=== PATIENT | female | born 1965 | race African-American/Black ===

== ENCOUNTER → 2017-02-07 | Outpatient (CLI) | payer BC ==
--- NOTE | 2017-02-07 12:59 | MAMMOGRAPHY REPORT ---
BILATERAL DIGITAL SCREENING MAMMOGRAM TOMOSYNTHESIS WITH CAD: 02/07/2017 CLINICAL HISTORY: Routine screening. Patient has no complaints. TECHNIQUE: Breast tomosynthesis in addition to standard 2D mammography was performed. Current study was also evaluated with a Computer Aided Detection (CAD) system. COMPARISON: Comparison is made to exams dated: 02/04/2016 mammogram, 02/02/2015 mammogram, 12/23/2013 m ammogram, 12/12/2012 mammogram, 05/25/2011 mammogram, and 05/20/2010 mammogram - [facility] nt. BREAST COMPOSITION: There are scattered areas of fibroglandular density in both breasts. FINDINGS: No suspicious masses, calcifications, or areas of architectural distortion are noted in e ither breast. There has been no significant interval change compared to prior exams. Small triangul ar asymmetry posterior to the right nipple middle depth on the MLO view is stable compared to prior exams including the 2012 exam. IMPRESSION: ACR BI-RADS CATEGORY 2: BENIGN There is no mammographic evidence of malignancy. A 1 year screening mammogram is recommended. The p atient will receive written notification of the results. Approximately 10% of breast cancers are not detected with mammography. A negative mammographic repor t should not delay biopsy if a clinically suggestive mass is present. Christina Pereira M.D. /:02/07/2017 11:42:51 Material Man: Irena HARPER(Whit)(Hedy), [facility] letter sent: Normal 1/2 BI-RADS Code: ACR BI-RADS Category 2: Benign
== END | disposition home or self-care (01) ==
LOC: C.MAMM 11:13
PROVIDERS: ATTEND Family Medicine
DX: Z12.31 Encounter for screening mammogram for malignant neoplasm of breast (principal)

== ENCOUNTER 2022-10-03 03:05 | Observation (INO) ==
[2022-10-03] MEDS ORDERED: methylPREDNISolone 125 MG/2 ML VIAL IV STA (03:18)
[2022-10-03] MEDS ORDERED: diphenhydrAMINE 50 MG/ML VIAL IV STA (03:18)
[2022-10-03] MEDS ORDERED: FAMOTIDINE 20MG IV PUSH 20 MG/5 ML SYR IV STA (03:18)
[2022-10-03] MEDS ORDERED: TRANEXAMIC ACID / 0.7% NACL 1,000 MG/100 ML BAG IV STA (03:20)
--- NOTE | 2022-10-03 03:20 | Emergency Department Note ---
History of Present Illness General Chief complaint: Allergic Reaction Stated complaint: TONGUE SWOLLEN Time Seen by Provider: 10/03/22 03:10 History of Present Illness Maximum Pain Intensity: 3 This 57-year-old female presents to the ER with spouse complaining of tongue swelling for the past 4 hours steadily getting worse. Patient denies chest pain, dyspnea, fevers, rash, throat tightness, abdominal pain, new foods soaps or detergents. Patient is on lisinopril for several years. No other concerns per patient. No history of similar episodes in the past. Past Med/Surg History Medical History High blood pressure Social History Smoking Status: Current every day smoker Tobacco Type: Cigarettes Feels Safe at Home: Yes Review of Systems A total of 10 systems reviewed and were otherwise negative Physical Exam Vital Signs Vital Signs - 24 hr 10/03/22 03:07 10/03/22 03:43 10/03/22 03:44 Temperature 36.2 C L Temperature Source Temporal Artery Scan Pulse Rate 79 Respiratory Rate 18 Respiratory Effort / Characteristics Non-Labored Spontaneous Respiratory Depth Normal Blood Pressure 157/86 H Blood Pressure Mean 109 Blood Pressure Position Sitting Pulse Oximetry 98 97 Oxygen Delivery Method Room Air Room Air Room Air Oxygen Flow Rate Sepsis Recent Fever Within 48 Hours No Sepsis New/Unexplained Change in Mental Status N/A Sepsis Action Taken by Nursing No Action Required 10/03/22 03:18 10/03/22 03:06 Temperature Temperature Source Pulse Rate Respiratory Rate Respiratory Effort / Characteristics Respiratory Depth Blood Pressure Blood Pressure Mean Blood Pressure Position Pulse Oximetry 98 98 Oxygen Delivery Method Room Air Room Air Oxygen Flow Rate 0 Sepsis Recent Fever Within 48 Hours Sepsis New/Unexplained Change in Mental Status Sepsis Action Taken by Nursing VITALS: Vitals are noted on the nurse's note and reviewed by myself. Vital signs stable. GENERAL: Pleasant female with a muffled voice, in no acute distress, nondiaphoretic, well-developed well-nourished. SKIN: The skin was without rashes, erythema, edema, or bruising. There is no tenting of the skin. Capillary reflex less than 2 seconds. HEAD: Normocephalic atraumatic. EARS: External auditory canals clear, tympanic membranes pearly alvarez without erythema or effusion bilaterally. EYES: Pupils equal round and reactive to light and accommodation. Conjunctivae without injection, sclerae without icterus. Extraocular movements intact. NOSE: Patent, turbinates without inflammation or discharge. No sinus tenderness. MOUTH: Mucous membranes moist. Pharynx without erythema or exudate. Uvula mi dline. Airway patent. Tongue extremely edematous unable to visualize the back of the throat NECK: Supple without nuchal rigidity. No lymphadenopathy. No thyromegaly. Cervical spine is nontender. No JVD. HEART: Regular rate and rhythm LUNGS: Clear to auscultation bilaterally without wheezes, rales or rhonchi. No retractions or accessory muscle use. ABDOMEN: Positive bowel sounds x 4. Normal tympanic percussion. Soft, nontender, without masses or organomegaly. Curry sign negative. No guarding or rebound tenderness. No CVA tenderness MUSCULOSKELETAL: No muscle atrophy, erythema, or edema noted. NEURO: Patient was alert and oriented to person place and time. Normal sensation to light and sharp touch. No focal neurological deficits. Course Administered Medications Discontinued Medications Diphenhydramine HCl (Diphenhydramine 50 Mg/Ml Vial) 50 mg IV NOW STA Stop: 10/03/22 03:19 Last Admin: 10/03/22 03:25 Dose: 50 mg Documented By: JOSÉ MIGUEL Famotidine (Pepcid 20mg Iv Push) 20 mg in 5 mls @ 2.5 mls/min IV NOW STA Stop: 10/03/22 03:19 Last Admin: 10/03/22 03:25 Dose: 2.5 mls/min Documented By: JOSÉ MIGUEL Tranexamic Acid (Tranexamic Acid / 0.7% Nacl) 1,000 mg in 100 mls @ 600 mls/hr IV NOW STA Stop: 10/03/22 03:29 Last Infusion: 10/03/22 03:40 Dose: 0 mls/hr Documented By: Admin: 10/03/22 03:25 Dose: 600 mls/hr Documented By: JOSÉ MIGUEL Methylprednisolone (Methylprednisolone 125 Mg/2 Ml Vial) 125 mg IV NOW STA Stop: 10/03/22 03:19 Last Admin: 10/03/22 03:25 Dose: 125 mg Documented By: JOSÉ MIGUEL Medical Decision Making Medical Records Attestation: I reviewed the patient's medical records. Home Medications Current Medication List: was personally reviewed by me Laboratory Data Attestation: I reviewed the patient's lab results. 10/03/22 03:30 10/03/22 03:30 Lab Results 10/03/22 10/03/22 10/03/22 Range/Units 03:30 03:30 03:30 WBC 7.70 (4.8-10.8) K/ul RBC 4.75 (3.93-5.22) M/uL Hgb 13.5 (12.0-16.0) g/dl Hct 39.8 (34.1-44.9) % MCV 83.8 (80.0-100.0) fL MCH 28.4 (25.0-34.0) pg MCHC 33.9 (32.0-36.0) g/dL RDW Std Deviation 46.6 H (36.4-46.3) fL RDW Coeff of Marry 15.2 H (11.5-14.5) % Plt Count 257 (130-400) K/uL MPV 10.9 (9.4-12.3) fL Immature Gran % (Auto) 0.3 % Neut % (Auto) 47.2 % Lymph % (Auto) 39.0 % [place] % (Auto) 8.4 % Eos % (Auto) 4.5 % Baso % (Auto) 0.6 % Neut # (Auto) 3.63 (1.4-6.5) K/uL Lymph # (Auto) 3.00 (1.2-3.4) K/uL [place] # (Auto) 0.65 (0.24-0.82) K/uL Eos # (Auto) 0.35 (0-0.50) K/uL Baso # (Auto) 0.05 (0-0.2) K/uL Immature Gran # (Auto) 0.02 (0.00-0.02) K/uL Sodium 139 (136-145) mmol/L Potassium 3.6 (3.5-5.1) mmol/L Chloride 103 (98-107) mmol/L Carbon Dioxide 30 (21-32) mmol/L Anion Gap 6 (3-11) BUN 13 (6-23) mg/dl Creatinine 0.85 (0.6-1.2) mg/dl Est Cr Clr Drug Dosing 80.5 ml/min Est GFR ( Amer) 88.2 ml/min Est GFR (Non-Af Amer) 76.1 ml/min BUN/Creatinine Ratio 15.3 (10-20) Glucose 95 (70-99(Fasting)) mg/dl Calcium 9.3 (8.5-10.1) mg/dl Total Bilirubin 0.4 (0.2-1.0) mg/dl AST 13 (13-39) U/L ALT 10 (7-52) U/L Alkaline Phosphatase 65 (34-104) U/L Total Protein 7.6 (6.0-8.3) gm/dl Albumin 4.5 (3.4-5.0) gm/dl Globulin 3.1 (2.5-4.0) gm/dl Albumin/Globulin Ratio 1.5 (0.9-2) SARS-CoV-2, RNA, NAAT NEGATIVE (NEGATIVE) MDM Narrative Prior records/ancillary studies reviewed. Triage Nursing notes reviewed. Additional history obtained from family. The patient's history was concerning for possible allergic reaction. Differential diagnosis: Etiologies such as allergic reaction, anaphylaxis, urticaria, Phillips-Iftikhar syndrome, toxic epidermal necrolysis, erythema multiforme, cellulitis, as well as others were entertained. Physical examination: As above. ER treatment provided: Continuous cardiac monitoring An order was placed for continuous cardiac monitoring. The monitor shows a rate of 60-100 with a sinus rhythm per my interpretation. Benadryl 50 mg IV Pepcid 20 mg IV TXA 1 g IV Solu-medrol 125mg IV Diagnostic interpretation by me: Labs: No worrisome leukocytosis, stable H&H. Negative COVID Stable creatinine Exam and history seem consistent with DEREK inhibitor angioedema. Patient's tongue was quite swollen. No real change with being medicated as above. Case discussed with hospitalist and patient will be admitted. Patient is agreeable treatment plan of admission. By the evaluation outlined above emergent etiolo gies such as recurring anaphylaxis, anaphylatic shock, Phillips-Iftikhar syndrome, toxic epidermal necrolysis, erythema multiforme, infectious etiologies, as well as others were deemed relatively unlikely. The pt informed about the findings as listed above. All questions were answered and pleased with the treatment. The chart was completed utilizing [employer] voice recognition software. Grammatical errors, random word insertions, pronoun errors, and incomplete sentences are an occassional consequence of this system due to software limitations, ambient noise, and hardware issues. Any formal questions or concerns about the content, text, or information contained within the body of this dictation should be directly addressed to the physician under water assistant for clarification. Impression & Plan Angioedema Discharge Plan Visit Data Chief Complaint: Allergic Reaction Stated Complaint: TONGUE SWOLLEN ED Provider: Jaiden Gregg ED Midlevel Provider: Adry Buitrago Discharge Problem: Angioedema Patient Disposition: Admitted As Inpatient Condition: Good Forms Stand Alone Forms: My [facility] Referrals Referrals: Rehana Metz CRNP [Primary Care Provider] - : Angioedema Qualifiers: Encounter type: initial encounter Qualified Code(s): T78.3XXA - Angioneurotic e dianna, initial encounter
[2022-10-03 03:47] LABS: Basophils # (auto) 0.05 K/uL (0-0.2); Basophils % (auto) 0.6 %; Eosinophils # (auto) 0.35 K/uL (0-0.50); Eosinophils % (auto) 4.5 %; Hematocrit (blood only) 39.8 % (34.1-44.9); Hemoglobin 13.5 g/dl (12.0-16.0); Immature Granulocytes # (auto) 0.02 K/uL (0.00-0.02); Immature Granulocytes % (auto) 0.3 %; Mean Corpuscular Hemoglobin 28.4 pg (25.0-34.0); Mean Corpuscular Hgb Conc 33.9 g/dL (32.0-36.0); Mean Corpuscular Volume 83.8 fL (80.0-100.0); Mean Platelet Volume 10.9 fL (9.4-12.3); Monocytes # (auto) 0.65 K/uL (0.24-0.82); Monocytes % (auto) 8.4 %; Neutrophils # (auto) 3.63 K/uL (1.4-6.5); Neutrophils % (auto) 47.2 %; Platelet Count 257 K/uL (130-400); RDW Coefficient of Variation 15.2 % (11.5-14.5); RDW Standard Deviation 46.6 fL (36.4-46.3); Red Blood Count 4.75 M/uL (3.93-5.22)
[2022-10-03 04:18] LABS: Albumin Globulin Ratio 1.5 (0.9-2); Albumin Level 4.5 gm/dl (3.4-5.0); Bilirubin,Total 0.4 mg/dl (0.2-1.0); Calcium 9.3 mg/dl (8.5-10.1); Globulin 3.1 gm/dl (2.5-4.0); Potassium 3.6 mmol/L (3.5-5.1); Total Protein 7.6 gm/dl (6.0-8.3)
[2022-10-03 04:54] LABS: BUN Creatinine Ratio 15.3 (10-20); Creatinine Clr Calc Pharmacy 80.5 ml/min; Est GFR (African American) 88.2 ml/min; Est GFR (Non-African American) 76.1 ml/min
--- NOTE | 2022-10-03 05:42 | History & Physical Report ---
Date of Service October 03, 2022 Assessment & Plan (1) Hypertension: (2) Depression: (3) Angioedema: Plan Angioedema- Swollen and edema tongue NPO Methylprednisolone 60 mg IV every 6 hours Famotidine 20 mg IV every 12 hours Benadryl 25 mg IV every 4 hours x2, then every 4 hours as needed NSS + KCl 20 mEq at 100 mils per hour Hold DEREK inhibitors Depression- Hold sertraline while n.p.o. Hypertension- Hydralazine 10 mg IV every 4 hours as needed for systolic blood pressure greater than 160 History of Present Illness Chief Complaint: The patient presents to the emergency department with spouse complaining of the acute development and worsening of tongue swelling for the past 4 hours prior to arrival Primary Care Provider: Rehana Metz The patient is a 57-year-old female with a past medical history of hypertension and depression, who presents to the emergency department with symptoms as noted above. She immediately received from the ED the following: Methylprednisolone 125 mg IV, famotidine 20 mg IV, tranexamic acid, and Benadryl 50 mg IV, from which she began to notice decrease in the amount of swelling. She denies any associated chest pain, shortness of breath, lightheadedness or dizziness or any other new symptoms. She does have tube medications that she takes: Lisinopril and sertraline. Past Med/Surg History Medical History High blood pressure Social History Smoking Status: Current every day smoker Tobacco Type: Cigarettes Feels Safe at Home: Yes Review of Systems Review of Systems: The patient denies chest pain, palpitations, shortness of breath, dyspnea on exertion, cough, lower extremity swelling, fevers, chills, sweats, weight change, fatigue, nausea, vomiting, diarrhea , co nstipation, abdominal pain, pelvic pain, blood in urine or stool, dysuria, urinary frequency or urgency, lightheadedness, dizziness, headache, memory loss, loss of consciousness, rash, abnormal bruising or bleeding, imbalance, focal or generalized weakness, numbness or tingling in arms or legs, generalized arthralgias or myalgias, back or neck pain, or night sweats. The review of systems is otherwise negative other than for that already noted above, and at least 10 systems have been reviewed. Physical Exam Physical Exam: The patient is awake, alert and oriented 3, well developed and well nourished, normocephalic and atraumatic, lying in bed and in no acute distress. HEENT--PERRL, EOM'sI. Limited oropharyngeal examination due to very enlarged tongue Neck--supple. No JVD. No bruits. Thyroid normal, trachea midline, no adenopathy. Heart--normal S1 and S2. No murmurs, rubs or gallops. Lungs--clear bilaterally, no respiratory distress, no accessory muscle use. Abdomen--normal bowel sounds and soft. Nontender. Nondistended, no hernias or masses, no organomegaly. Extremities--no cyanosis or clubbing. No edema. There are good distal pulses b/l. Dermatologic--normal skin turgor, normal color, no abnormal lymph nodes, no rash. Neurologic--cranial nerves II through XII grossly intact. Rheumatologic--normal range of motion. Psychiatric--normal affect. Results & Data Results & Data ([facility]) Vital Signs (Past 12 Hours) Vital Signs Temp Pulse Pulse Resp BP BP Pulse Ox 10/03/22 05:06 58 L 16 147/98 H 96 10/03/22 03:06 98 10/03/22 03:18 98 10/03/22 03:44 97 10/03/22 03:43 10/03/22 03:07 36.2 C L 79 18 157/86 H 98 O2 Del Method O2 Flow Rate 10/03/22 05:06 Room Air 10/03/22 03:06 Room Air 0 10/03/22 03:18 Room Air 10/03/22 03:44 Room Air 10/03/22 03:43 Room Air 10/03/22 03:07 Room Air Laboratory Results Laboratory Results WBC 7.70 K/ul (4.8-10.8) 10/03/22 03:30 RBC 4.75 M/uL (3.93-5.22) 10/03/22 03:30 Hgb 13.5 g/dl (12.0-16.0) 10/03/22 03:30 Hct 39.8 % (34.1-44.9) 10/03/22 03:30 MCV 83.8 fL (80.0-100.0) 10/03/22 03:30 MCH 28.4 pg (25.0-34.0) 10/03/22 03:30 MCHC 33.9 g/dL (32.0-36.0) 10/03/22 03:30 RDW Std Deviation 46.6 fL (36.4-46.3) H 10/03/22 03:30 RDW Coeff of Marry 15.2 % (11.5-14.5) H 10/03/22 03:30 Plt Count 257 K/uL (130-400) 10/03/22 03:30 MPV 10.9 fL (9.4-12.3) 10/03/22 03:30 Immature Gran % (Auto) 0.3 % 10/03/22 03:30 Neut % (Auto) 47.2 % 10/03/22 03:30 Lymph % (Auto) 39.0 % 10/03/22 03:30 [place] % (Auto) 8.4 % 10/03/22 03:30 Eos % (Auto) 4.5 % 10/03/22 03:30 Baso % (Auto) 0.6 % 10/03/22 03:30 Neut # (Auto) 3.63 K/uL (1.4-6.5) 10/03/22 03:30 Lymph # (Auto) 3.00 K/uL (1.2-3.4) 10/03/22 03:30 [place] # (Auto) 0.65 K/uL (0.24-0.82) 10/03/22 03:30 Eos # (Auto) 0.35 K/uL (0-0.50) 10/03/22 03:30 Baso # (Auto) 0.05 K/uL (0-0.2) 10/03/22 03:30 Immature Gran # (Auto) 0.02 K/uL (0.00-0.02) 10/03/22 03:30 Sodium 139 mmol/L (136-145) 10/03/22 03:30 Potassium 3.6 mmol/L (3.5-5.1) 10/03/22 03:30 Chloride 103 mmol/L (98-107) 10/03/22 03:30 Carbon Dioxide 30 mmol/L (21-32) 10/03/22 03:30 Anion Gap 6 (3-11) 10/03/22 03:30 BUN 13 mg/dl (6-23) 10/03/22 03:30 Creatinine 0.85 mg/dl (0.6-1.2) 10/03/22 03:30 Est Cr Clr Drug Dosing 80.5 ml/min 10/03/22 03:30 Est GFR ( Amer) 88.2 ml/min 10/03/22 03:30 Est GFR (Non-Af Amer) 76.1 ml/min 10/03/22 03:30 BUN/Creatinine Ratio 15.3 (10-20) 10/03/22 03:30 Glucose 95 mg/dl (70-99(Fasting)) 10/03/22 03:30 Calcium 9.3 mg/dl (8.5-10.1) 10/03/22 03:30 Total Bilirubin 0.4 mg/dl (0.2-1.0) 10/03/22 03:30 AST 13 U/L (13-39) 10/03/22 03:30 ALT 10 U/L (7-52) 10/03/22 03:30 Alkaline Phosphatase 65 U/L (34-104) 10/03/22 03:30 Total Protein 7.6 gm/dl (6.0-8.3) 10/03/22 03:30 Albumin 4.5 gm/dl (3.4-5.0) 10/03/22 03:30 Globulin 3.1 gm/dl (2.5-4.0) 10/03/22 03:30 Albumin/Globulin Ratio 1.5 (0.9-2) 10/03/22 03:30 SARS-CoV-2, RNA, NAAT NEGATIVE (NEGATIVE) 10/03/22 03:30 Code Status & VTE Plan Code Status Full code VTE Prophylaxis Plan VTE Prophylaxis will be ordered: Yes PG Care Time/CCT Total # of Minutes Spent Total Time Spent with Patient: Total time spent is greater than 50% in coordination of care (as documented) at patient's floor/unit and/or counseling patient: Coding Level of Care Code 73258 INT INP/OBS CARE 3/75MIN Diagnoses Hypertension I10 Depression F32.A Angioedema T78.3XXA Encounter type: initial encounter (1) Angioedema Encounter type: initial encounter Qualified Code(s): T78.3XXA - Angioneurotic edema, initial encounter
[2022-10-03] MEDS ORDERED: ONDANSETRON INJ 2 MG/ML 2 ML VIAL IV PRN (06:03)
[2022-10-03] MEDS ORDERED: hydrALAZINE HCL 20 MG/ML VIAL IV PRN (06:26)
[2022-10-03] MEDS ORDERED: Patient's ALLERGY Info needs ENTERED SCH (06:45)
[2022-10-03] MEDS: diphenhydrAMINE 50 MG/ML VIAL IV SCH ×2 (07:43→12:14)
[2022-10-03] MEDS: methylPREDNISolone 60 MG in SYRINGE 0 ML IV SCH ×2 (10:47→15:48)
[2022-10-03] MEDS: NSS + 20MEQ KCL 20 MEQ/1,000 ML BAG IV SCH ×3 (10:47→21:41)
[2022-10-03] MEDS: FAMOTIDINE 20 MG in SYRINGE 3 ML IV SCH ×2 (12:14→20:32)
[2022-10-03] MEDS ORDERED: diphenhydrAMINE 50 MG/ML VIAL IV PRN (15:30)
[2022-10-04 06:36] LABS: Basophils # (auto) 0.03 K/uL (0-0.2); Basophils % (auto) 0.2 %; Hematocrit (blood only) 36.3 % (34.1-44.9); Hemoglobin 12.3 g/dl (12.0-16.0); Immature Granulocytes # (auto) 0.08 K/uL (0.00-0.02); Immature Granulocytes % (auto) 0.5 %; Lymphocytes # (auto) 2.63 K/uL (1.2-3.4); Lymphocytes % (auto) 17.6 %; Mean Corpuscular Hemoglobin 28.3 pg (25.0-34.0); Mean Corpuscular Hgb Conc 33.9 g/dL (32.0-36.0); Mean Corpuscular Volume 83.4 fL (80.0-100.0); Mean Platelet Volume 11.2 fL (9.4-12.3); Monocytes # (auto) 1.11 K/uL (0.24-0.82); Monocytes % (auto) 7.4 %; Neutrophils # (auto) 11.07 K/uL (1.4-6.5); Neutrophils % (auto) 74.3 %; Platelet Count 235 K/uL (130-400); RDW Coefficient of Variation 15.3 % (11.5-14.5); Red Blood Count 4.35 M/uL (3.93-5.22); White Blood Count 14.92 K/ul (4.8-10.8)
[2022-10-04 06:51] LABS: Albumin Level 3.8 gm/dl (3.4-5.0); Calcium 8.6 mg/dl (8.5-10.1); Magnesium 2.1 mg/dl (1.7-2.4); Potassium 3.9 mmol/L (3.5-5.1)
[2022-10-04 06:57] LABS: BUN Creatinine Ratio 18.6 (10-20); Est GFR (African American) 86.9 ml/min; Phosphorus 3.3 mg/dl (2.5-4.9)
[2022-10-04] MEDS: NSS + 20MEQ KCL 20 MEQ/1,000 ML BAG IV SCH (08:35)
[2022-10-04] MEDS: FAMOTIDINE 20 MG in SYRINGE 3 ML IV SCH (08:39)
[2022-10-04] MEDS ORDERED: methylPREDNISolone 60 MG in SYRINGE 0 ML IV SCH (09:00)
--- NOTE | 2022-10-12 17:42 | Discharge Summary ---
Date of Service October 04, 2022 Admission HPI Per Admitting Provider The patient is a 57-year-old female with a past medical history of hypertension and depression, who presents to the emergency department with symptoms as noted above. She immediately received from the ED the following: Methylprednisolone 125 mg IV, famotidine 20 mg IV, tranexamic acid, and Benadryl 50 mg IV, from which she began to notice decrease in the amount of swelling. She denies any associated chest pain, shortness of breath, lightheadedness or dizziness or any other new symptoms. She does have tube medications that she takes: Lisinopril and sertraline. Principal Diagnosis Angioedema (possibly/likely) an adverse effeect of Lisinopril Discharge Exam The patient is awake, alert and oriented 3, well developed and well nourished, normocephalic and atraumatic, lying in bed and in no acute distress. HEENT--PERRL, EOM'sI. Lips and tongue no longer showing signs of any swelling. Neck--supple. No JVD. No bruits. Thyroid normal, trachea midline, no adenopathy. Heart--normal S1 and S2. No murmurs, rubs or gallops. Lungs--clear bilaterally, no respiratory distress, no accessory muscle use. Abdomen--normal bowel sounds and soft. Nontender. Nondistended, no hernias or masses, no organomegaly. Extremities--no cyanosis or clubbing. No edema. There are good distal pulses b/l. Dermatologic--normal skin turgor, normal color, no abnormal lymph nodes, no rash. Neurologic--cranial nerves II through XII grossly intact. Rheumatologic--normal range of motion. Psychiatric--normal affect. Discharge Data Allergies Allergy/AdvReac Type Severity Reaction Status Date / Time No Known Allergies Allergy Unverified 10/03/22 06:44 Consultations 10/03/22 03:31 ED Decision to Admit Stat Hospital Course (1) Hypertension: (2) Depression: (3) Angioedema: Plan Angioedema- Angioedema (possibly/likely) an adverse effeect of Lisinopril will hold lisinopril from here on out. Admitted with Swollen and edema tongue NPO Methylprednisolone 60 mg IV every 6 hours Famotidine 20 mg IV every 12 hours Benadryl 25 mg IV every 4 hours x2, then every 4 hours as needed Patient improved on 10/04, patient was able to be discharged on streoid taper as she tolerated her diet. Depression- Hold sertraline while n.p.o. resumed at discharge. Hypertension- Hydralazine 10 mg IV every 4 hours as needed for systolic blood pressure greater than 160 Total Time Total Time Spent Total Time Spent (In Minutes): 32 Discharge Plan Discharge Items Patient Disposition: Home - Self-Care Reason For Visit: ACEI ANGIOEDEMA Discharge Diagnosis: gray inhibitor angioedema Condition on Discharge: Good Activity: Resume your previous activity Non-emergency contact: Primary Care Provider Call non-emergency contact if: you have any medication questions Follow-up/Referrals: Mikaela Laughlin PA-C [Physician Manufacturing Technology Analyst] - 10/09/22 2:30 pm (Dr. Ritter is booked until 12/07. Appointment was made with GUME Chadwick, who is with Dr. Ritter. ) Rehana Metz CRNP [Primary Care Provider] - 10/11/22 2:30 pm Diet: Regular Addtl Attending Provider Instructions: Recommend close followup with PCP Recommend stopping lisinopril Recommend a short steroid taper. Recommend followup with Dr. Ritter , this will be scheduled for you. Pending Studies at Discharge: No Stand-Alone Forms: My [facility] [employer], Smoking Cessation Medications and DC Order Prescriptions: New amlodipine 2.5 mg tablet 2.5 mg PO HS Qty: 30 0RF prednisone 10 mg tablet 10 mg PO DAILY Qty: 10 0RF Rx Instructions: Take 4 tabs by mouth once a day for 1 day 3 tabs for 1 day 2 tabs for 1 day 1 tab for 1 day. Discharge Orders: Discharge Order (Routine); Ordered 10/04/22 Ordered By: Eliecer Vora Admission Data Admit Date/Time: 10/03/22 05:41 Attending Provider: Eliecer Vora Admit Provider: Johnathon López Primary Care Provider: Rehana Metz Other Providers: Johnathon López Other Interventions: Discharge Summary Assessment (RN) Last Done: 10/04/22 13:06 Coding Level of Care Code HOSP INP/OBS DISCH >30 MIN Diagnoses Hypertension I10 Depression F32.A Angioedema T78.3XXA Encounter type: initial encounter
== END 2022-10-04 13:30 | disposition home or self-care (01) | DRG 916 ==
LOC: ED 03:05 → SUATTDRO 05:41 → EDINP 05:41 → INTOOBSV 05:41 → 2S 06:04
DX: Y92.009 Unspecified place in unspecified non-institutional (private) residence as the place of occurrence of the external cause; F17.210 Nicotine dependence, cigarettes, uncomplicated; F32.A Depression, unspecified; I10 Essential (primary) hypertension; T46.4X5A Adverse effect of angiotensin-converting-enzyme inhibitors, initial encounter; T78.3XXA Angioneurotic edema, initial encounter